=== PATIENT | female | born 1960 | race Caucasian/White ===

== ENCOUNTER → 2016-03-21 | Day surgery (SDC) | payer OTHER ==
[~2016-03-21] VITALS: Ht 157.5 cm; Wt 68.9 kg
[~2016-03-21] MED LIST: ESCITALOPRAM OX10 MG PO
--- NOTE | 2016-03-21 12:42 | Operative Report ---
Operative/Inv Procedure Report Surgery Date: 03/21/16 Name of Procedure: D&C hysteroscopy Pre-Operative Diagnosis: Postmenopausal bleeding Post-Operative Diagnosis: Same Estimated Blood Loss: less than 50ml Surgeon/Gang Miner: MAUDE MOCTEZUMA MD Anesthesia: moderate sedation Operative/Procedure Note Note: She was taken the operating room placed supine position after adequate anesthesia patient placed in dorsolithotomy position the vagina prepped draped fashion bladder was catheterized examination anesthesia performed at this point a single-tooth tenaculum placed on the Intralipid cervix after a small hill speculum placed in the vagina cervix was dilated 29 Hegar to allow for the insertion hysteroscope under direct visualization on hysteroscopy was performed using gas hysteroscope was removed a sharp curettage of the endometrial lining was performed sharp curettage and cervical lining performed 2 specimens were sent to pathology patient tolerated that well on since removed from the vagina and the patient was returned spine position awakened from anesthesia and transferred recovery room awake alert with counts correct Findings: Retroverted uterus no adnexal masses bilaterally heavy lining otherwise normal anatomy
== END ==
LOC: STS 02:10
DX: N95.0 Postmenopausal bleeding (principal); N85.4 Malposition of uterus
CPT/HCPCS: 88305; J0131; J1100; J2250; J2405